=== PATIENT | female | born 1950 | race Caucasian/White ===

== ENCOUNTER 2017-12-24 11:28 | Day surgery (SDC) | payer OTHER ==
--- NOTE | 2017-12-23 15:35 | RAD REPORT ---
EXAM DESCRIPTION: Aishwarya Salas And Yoan (2 Views)12/23/2017 3:18 pm CLINICAL HISTORY: Preop for bladder surgery COMPARISON: April 2017 FINDINGS: The lungs appear clear of acute infiltrate. A calcified granuloma is present within the r ight lung The heart is normal size IMPRESSION: No acute abnormalities displayed
--- NOTE | 2017-12-23 22:13 | EKG ---
Test Date: 2017-12-23 Test Time: 15:08:11 Ent Physician: MARILYN MEASUREMENT RESULTS: Intervals: Rate: 83 ND: 136 QRSD: 84 QT: 388 QTc: 455 [place]: P: 71 ND: 136 QRS: 59 T: 62 INTERPRETIVE STATEMENTS: Normal sinus rhythm Normal ECG Compared to ECG 05/16/2017 08:32:49 No significant changes Electronically Signed On 12-23-17 22:12:35 CDT by Korey Little
[~2017-12-24 11:28] MED LIST: FENTANYL CITR 100 MCG/2 ML ONE; LIDOCAINE 2% MPF 5 ML VIAL ONE; MIDAZOLAM HCL 2 MG/2 ML INJ ONE; ONDANSETRON HCL 40 MG/20 ML VIAL ONE; PROPOFOL 200 MG/20 ML VIAL IV ONE
[2017-12-24] MEDS ORDERED: Ringers Lactate 1,000 ML IV ONE (11:52)
[2017-12-24] MEDS ORDERED: GENTAMICIN 100 MG/100 ML BAG 100 MG/100 ML BAG IV ONE (11:52)
[2017-12-24] MEDS ORDERED: PROPOFOL 200 MG/20 ML VIAL IV ONE (12:55)
[2017-12-24] MEDS ORDERED: FENTANYL CITR 100 MCG/2 ML ONE (12:56)
[2017-12-24] MEDS ORDERED: MIDAZOLAM HCL 2 MG/2 ML INJ ONE (12:56)
[2017-12-24] MEDS ORDERED: LIDOCAINE 2% MPF 5 ML VIAL ONE (12:57)
[2017-12-24] MEDS ORDERED: ONDANSETRON HCL 40 MG/20 ML VIAL ONE (12:58)
[2017-12-24] MEDS ORDERED: OXYBUTYNIN CHLORIDE 5 MG TAB ONE (15:06)
== END 2017-12-24 15:12 | disposition home or self-care (01) ==
LOC: OR 11:28
PROVIDERS: ATTEND Urology
PROC: 0TBB8ZX Excision of Bladder, Via Natural or Artificial Opening Endoscopic, Diagnostic (ICD-10-PCS; principal; 2017-12-24 12:15)
DX: D49.4 Neoplasm of unspecified behavior of bladder (principal); N30.20 Other chronic cystitis without hematuria; E03.9 Hypothyroidism, unspecified; F32.9 Major depressive disorder, single episode, unspecified
CPT/HCPCS: 71046; 88305; 93005; J1580; J2250; J2405; J3010